=== PATIENT | male | born 1965 | race Caucasian/White ===

== ENCOUNTER → 2016-08-31 | Day surgery (SDC) | payer OTHER ==
[~2016-08-31] MED LIST: ACETAMINOPHEN PO; ADVAIR 2501 DISK W/D PO; ALBUTEROL17 GM INH; AMBIEN10 MG PO; AMOXICILLIN PO; ATORVASTATIN CA20 MG PO; BREO ELLIPTA 11 EACH INH; CLARITIN10 M3 PO; DILANTIN PO; FLEXERIL10 M1 PO; FOLIC ACID PO; IBUPROFEN800 MG PO; LOPRESSOR PO; MONTELUKAST SOD10 MG PO; NAPROXEN PO; NEURONTIN800 MG PO; NEXIUM PO; NICOTINE T1 PATCH .2 TOP; PAIN PUMP MORPHINE; PERCOCET5/325 PO; PREDNISONE PO; PRILOSEC PO; SEROQUEL PO; THIAMINE HCL100 MG PO; TRAZODONE PO; VOLTAREN50 MG PO
--- NOTE | ~2016-08-31 | EKG ---
PATIENT: JHOAN SKAGGS UNIT #: [id number] Ventricular Rate: 78 BPM Atrial Rate: 78 BPM P-R Interval: 142 ms QRS Duration: 74 ms Q-T Interval: 350 ms QTC Calculation(Bezet): 399 ms P Mitchell: 53 degrees Calculated R Mitchell: -19 degrees Calculated T Mitchell: 40 degrees Diagnosis Line: Normal sinus rhythm Diagnosis Line: Normal ECG Diagnosis Line: No previous ECGs available Diagnosis Line: Confirmed by JOSEPH PHAM MD ([id number]) on 09/01/2016 Diagnosis Line: 5:39:31 PM INTERPRETING MD: ANKIT SANTACRUZ
--- NOTE | ~2016-08-31 | OR ---
Unit #: [id number] #: [id number] Patient: JHOAN SKAGGS [id number] [facility] [address] [place], [place] [address] [id number] O MR#: [id number] NAME: JHOAN SKAGGS ROOM: Date of Procedure: 08/31/2016 Admission Date: 08/31/2016 Surgeon: Michael Diaz D.M.D., [facility] : 1965 Attending Physician: Michael Diaz D.M.D., [facility] Primary Care Physician: Nixon Isabel M.D. OPERATIVE REPORT PREOPERATIVE DIAGNOSIS Failure of maxillary fixation hardware. POSTOPERATIVE DIAGNOSIS Failure of maxillary fixation hardware. PROCEDURE PERFORMED Removal of 4 maxillary fixation plates and all screws associated with those plates. ANESTHESIA General anesthesia with oral endotracheal tube intubation. FLUIDS As per the anesthesia record. ESTIMATED BLOOD LOSS 50 mL. INDICATIONS FOR THE PROCEDURE Jhoan Skaggs is a 51-year-old male, who is well known to my office, was initially treated for some maxillary facial fractures in 2008. At that time, he had open reduction and internal fixation with the placement of 4 Synthes maxillofacial plates and screws to treat his maxillary fracture. The patient tolerated the procedure well and healed well. He returned to my office approximately 1 week ago on 08/24/2016 with complaints that the plates were starting to show through and began to irritate his denture that he wears for his maxilla. Upon examination, the upper left posterior maxillary plate had eroded through the gingival tissue and was causing some trauma due to the irritation with the denture. It was explained to Mr. kSaggs that the fractures have completely healed and that the plates could be removed and would subside his irritation and pain that he was getting. This will need to be done under general anesthetic. Therefore, he was scheduled to [facility] for the procedure. All risks and benefits were explained. He fully consented. DESCRIPTION OF PROCEDURE The patient was identified and was taken to the operating room at [facility] and placed in supine position. He was then intubated with an oral endotracheal tube without complications. Once intubated, he was prepped and draped in sterile fashion. Local anesthesia 0.5% Marcaine with 1:200,000 epinephrine was given. Moistened throat pack Unit #: [id number] #: [id number] Patient: JHOAN SKAGGS was placed and then a Bovie electrocautery with the needle tip was used to make an incision in the maxillary vestibule from the right to the anterior area of the maxilla towards the left. Periosteal elevator was used to reflect a full-thickness flap exposing the plates, which were located in the right and left posterior maxilla and the right and left anterior maxilla. These plates were then removed. All screws were removed with a screwdriver. All screws were accounted for and the plates were then removed after retraction of the flap. Once all plates were removed, closure of the wound was completed with a 4-0 chromic gut suture in a running interlocking style. The patient tolerated the procedure well. Moistened throat pack was removed. Oropharynx suctioned. Care was return to Anesthesia team in which he was extubated and taken to the postanesthesia care unit in stable condition. There were no complications. The patient will be discharged from the hospital and follow up in approximately 1 week. Dictated by... Michale Diaz D.M.D., [facility]/kajal TD: 09/01/2016 02:02 JOB #: [id number] OPERATIVE REPORT X Michael Diaz DMD PROCEDURE OPERATIVE NOTE
--- NOTE | ~2016-08-31 | CR63 ---
[facility] A Service of [facility] RADIOLOGY TEXT RESULTS PATIENT: JHOAN SKAGGS LOCATION: [facility] : [birth year] UNIT #: [id number] AGE: [address]: Michael Diaz DMD SEX: M ORDER DR: [id number] [facility] [address] [place], [place] [address] [id number] O MR#: [id number] Acc #: [id number] NAME: JHOAN SKAGGS : 1965 SEX: M STUDY DATE/TIME: 08/31/2016 12:59 UNIT: [facility] ROOM: STUDY DESCRIPTION: CR Chest 2 View Attending Physician: Michael Diaz D.M.D., [facility] Ordering Physician: Michael Diaz D.M.D., [facility] Primary Care Physician: Nixon Isabel M.D. MEDICAL IMAGING REPORT This report is preliminary unless electronic signature is present EXAM Chest x-ray 08/31/2016. HISTORY 51-year-old male undergoing preoperative testing prior to scheduled facial surgery today. He complains of new onset shortness of air today. TECHNIQUE PA and lateral upright chest series. FINDINGS The examination shows diffuse reticulonodular interstitial lung disease with an upper lung predominance. Similar findings are visible on the prior chest x-ray of 09/22/2015 and were also present on a previous chest CT. Correlate clinically for any known history of sarcoidosis or similar interstitial lung disease. No airspace consolidation, pneumothorax or pleural effusion. Heart size normal. IMPRESSION 1. Diffuse reticulonodular interstitial lung disease as noted above. 2. No acute abnormality. No change since the prior exam. Dictated by... Rios Lozano M.D. THIS IS AN ELECTRONICALLY VERIFIED REPORT Rios Lozano M.D. at 08/31/2016 4:13 PM ROLANDW/eugenio TD: 08/31/2016 15:27 [facility] A Service [facility] RADIOLOGY TEXT RESULTS PATIENT: JHOAN SKAGGS LOCATION: [facility] #: [id number] : [birth year] UNIT #: [id number] AGE: [address]: Michael Diaz DMD SEX: M ORDER DR: DIANE #: [id number] MEDICAL IMAGING REPORT COPY
[2016-08-31 12:56] LABS: BASOPHIL# 0.1 X10e3 (0-0.3); EOSINOPHIL# 0.1 X10e3 (0-0.7); HEMATOCRIT 37.1 % (38.0-50.0); HEMOGLOBIN 12.2 gm/dL (13.0-16.0); LYMPHOCYTE# 3.6 X10e3 (1.0-3.5); LYMPHOCYTE% 29.1 % (17.0-45.0); MEAN CELL VOLUME 81.5 FL (83-96); MEAN CORPUSCULAR HEMOGLOBIN 26.8 PG (28-34); MEAN CORPUSCULAR HGB CONC 32.8 g/dL (30-36); MEAN PLATELET VOLUME 7.9 FL (6.5-11.5); MONOCYTE# 0.7 X10e3 (0-1.0); MONOCYTE% 5.5 % (3.0-12.0); NEUTROPHIL# 7.8 X10e3 (1.5-7.1); NEUTROPHIL% 63.4 % (40-75); PLATELET COUNT 360 X10e3 (140-420); RED BLOOD COUNT 4.55 X10e (3.90-5.60); RED CELL DISTRIBUTION WIDTH 14.8 % (11.0-15.5); WHITE BLOOD COUNT 12.2 X10e3 (4.0-10.5)
[2016-08-31 13:05] LABS: DIFF IND NO
[2016-08-31 14:29] LABS: ALBUMIN SERUM 3.5 g/dL (3.5-5.0); ALKALINE PHOSPHATASE 59 U/L (32-92); ALT (SGPT) 16 U/L (10-40); AST (SGOT) 24 U/L (10-42); BILIRUBIN,TOTAL 0.7 mg/dL (0.2-2.0); BLOOD UREA NITROGEN 10 mg/dL (9-23); CALCIUM SERUM 8.8 mg/dL (8.4-10.2); CARBON DIOXIDE 24 mmol/L (22-31); CHLORIDE 109 mmol/L (100-111); CREATININE SERUM 0.5 mg/dL (0.6-1.4); GLOM FILT RATE Estimated ABOVE60 mL/min (>60); GLUCOSE FASTING 88 mg/dL (70-110); POTASSIUM 4.2 mmol/L (3.5-5.1); PROTEIN TOTAL SERUM 7.9 g/dL (6.0-8.3); SODIUM 138 mmol/L (135-145)
== END | disposition home or self-care (01) ==
LOC: CSUR 11:42
PROVIDERS: Dentist Oral and Maxillofacial Surgery
DX: Z47.2 Encounter for removal of internal fixation device (principal); J44.9 Chronic obstructive pulmonary disease, unspecified; K21.9 Gastro-esophageal reflux disease without esophagitis; Z98.890 Other specified postprocedural states; Z87.01 Personal history of pneumonia (recurrent)
CPT/HCPCS: 71020; 80053; 85025; 93005; J0330; J0690; J1100; J1885; J2250; J2405; J2710; J3010